=== PATIENT | male | born 1980 | race Caucasian/White ===

== ENCOUNTER 2022-05-05 03:35 | Emergency (ER) | payer MEDICAID ==
[~2022-05-05] VITALS: Ht 167.6 cm; Wt 86.4 kg
[2022-05-05 04:01] LABS: COVID AG,FIA SOURCE NASAL SWAB
[2022-05-05 04:12] LABS: RAPID GROUP A STREP NEGATIVE (NEGATIVE)
[2022-05-05] MEDS ORDERED: ATOR40TA71 PO (04:12)
[2022-05-05] MEDS ORDERED: SITA50 PO (04:12)
[2022-05-05] MEDS ORDERED: FLAS1KIT3 (04:12)
[2022-05-05] MEDS ORDERED: CYCL10TA16 PO (04:12)
[2022-05-05] MEDS ORDERED: HYDR-4527 PO (04:12)
[2022-05-05] MEDS ORDERED: SERT-439 PO (04:12)
[2022-05-05] MEDS ORDERED: AMLO10TA55 PO (04:12)
[2022-05-05] MEDS ORDERED: INSU3INS3 SQ (04:12)
[2022-05-05] MEDS ORDERED: METO-408 PO (04:12)
[2022-05-05] MEDS ORDERED: CELE-84 PO (04:12)
[2022-05-05] MEDS ORDERED: LISI40TA9 PO (04:12)
[2022-05-05] MEDS ORDERED: CHOL100062 PO (04:12)
[2022-05-05] MEDS ORDERED: SERT-438 PO (04:13)
[2022-05-05 04:20] LABS: INFLUENZA TYPE A NEGATIVE FOR TYPE A (NEGATIVE); INFLUENZA TYPE B NEGATIVE FOR TYPE B (NEGATIVE)
[2022-05-05 04:33] VITALS: BP 120/75
[2022-05-05 04:42] LABS: APPEARANCE,URINE CLEAR (CLEAR); BILIRUBIN,URINE NEGATIVE (NEGATIVE); GLUCOSE, URINE (UA) NEGATIVE (NEGATIVE); KETONES,URINE NEGATIVE (NEGATIVE); LEUKOCYTE ESTERASE ,URINE NEGATIVE (NEGATIVE); NITRATE,URINE NEGATIVE (NEGATIVE); OCCULT BLOOD,URINE NEGATIVE (NEGATIVE); PH,URINE 5.5 (5.0-8.0); PROTEIN,URINE NEGATIVE (NEGATIVE); UROBILINOGEN,URINE <=1.0 mg/dL (<=1.0)
[2022-05-05] MEDS ORDERED: ACETAMINOPHEN 500 MG TABLET PO ONE (04:45)
[2022-05-05] MEDS ORDERED: NIRM1TAB PO (05:03)
[2022-05-05] MEDS ORDERED: ALBUTEROL SULFATE HFA 90 MCG/PUFF 8 GM INHALER IH ONE ×2 (05:03→05:15)
== END 2022-05-05 05:22 | disposition home or self-care (01) ==
LOC: EMS 03:39
DX: U07.1 COVID-19 (principal); I10 Essential (primary) hypertension; E11.9 Type 2 diabetes mellitus without complications; E78.00 Pure hypercholesterolemia, unspecified; Z79.899 Other long term (current) drug therapy
CPT/HCPCS: 81003; 82962; 87430; 87804; 94640; 99283; J3535